=== PATIENT | male | born 1960 | race Two or more races ===

== ENCOUNTER 2025-01-19 10:35 | Day surgery (SDC) | payer MEDICAID, SELFPAY ==
--- NOTE | 2025-01-16 08:35 | EKG_ITS ---
[facility] Test Date: 2025-01-16 Pat Name: OCTAVIANO COLE Department: Room: - Gender: Male Squilgeer: ARIADNA : 1960 Requested By: Fab Urrutia Order Number: [id number] Reading MD: Fab Urrutia Measurements Intervals Brilliant Rate: 76 P: 54 WA: 225 QRS: 2 QRSD: 89 T: 73 QT: 357 QTc: 403 Interpretive Statements SINUS RHYTHM WITH FIRST DEGREE AV BLOCK No previous ECG available for comparison /[id number]/[email or web address]/[id number]
[2025-01-16 08:42] VITALS: BMI 41.8
[2025-01-16 11:21] VITALS: BMI 28.9
[2025-01-16 11:51] LABS: Collection Type, Urine Clean Catch; RBC,Urine 0 /hpf (0-3); Squamous Epithelial Cell,Urine 0 /hpf (0-5); WBC,Urine 0 /hpf (0-5)
[2025-01-16 12:39] LABS: Basophils # (Auto) 0.1 Thou/mm3 (0.0-0.2); Basophils % (Auto) 1 % (0-2.5); Eosinophils # (Auto) 0.1 Thou/mm3 (0.0-0.5); Eosinophils % (Auto) 2 % (0-10); Hematocrit 41.3 % (41.0-53.0); Hemoglobin 15.6 g/dL (13.5-16.0); Immature Granulocytes % (Auto) 0 % (0-0); Immature Granulocytes Auto 0.02 Thou/mm3 (0.00-0.00); Lymphocytes # (Auto) 2.3 Thou/mm3 (1.0-4.8); Lymphocytes % (Auto) 38 % (10-50); Mean Corpuscular HGB Conc 37.8 g/dl (31.0-37.0); Mean Corpuscular Hemoglobin 31.6 pg (25.0-35.0); Mean Corpuscular Volume 84 fL (80-100); Monocytes # (Auto) 0.5 Thou/mm3 (0.0-0.8); Monocytes % (Auto) 8 % (0-12); Neutrophils # (Auto) 3.2 Thou/mm3 (1.8-7.7); Neutrophils % (Auto) 51 % (37-80); Nucleated Red Blood Cell % 0 /100 WBC (0); Platelet Count 217 Thou/mm3 (140-440); RDW Standard Deviation 37.4 fL (35.1-43.9); Red Blood Count 4.93 Miln/mm3 (4.50-5.90); White Blood Count 6.2 Thou/mm3 (3.8-10.6)
[2025-01-16 12:48] LABS: Partial Thromboplastin Time 26.8 Seconds (22.0-36.0)
[2025-01-16 12:49] LABS: Alanine Aminotransferase 31 U/L (10-49); Albumin, Serum 4.6 gm/dL (3.4-4.8); Albumin/Globulin Ratio 1.6 (1.2-2.2); Alkaline Phosphatase 104 U/L (46-116); Anion Gap 9 (7-16); Aspartate Amino Transferase 25 U/L (0-34); BUN/Creatinine Ratio 14 Ratio (12-20); Bilirubin,Total 0.5 mg/dL (0.3-1.2); Blood Urea Nitrogen 17 mg/dL (9-23); Calcium 9.4 mg/dL (8.3-10.6); Calcium (Corrected) 9.4 mg/dL (8.5-10.1); Chloride 103 mMol/L (98-107); Creatinine (Component) 1.2 mg/dL (0.6-1.3); Estimated Creatinine Clearance 61.8 mL/min (>60); Globulin 2.8 gm/dL (2.3-3.5); Glucose 237 mg/dL (74-106); Osmolality,Calculated 288 (275-295); Potassium 4.8 mMol/L (3.4-5.1); Sodium 140 mMol/L (136-145); Total Protein 7.4 gm/dL (5.7-8.2); eGFR > 60 See Note
[2025-01-16 13:03] LABS: Bilirubin,Urine Negative (Negative); Blood,Urine Negative (Negative); Clarity,Urine Clear (Clear/Hazy); Color,Urine Lt-Yellow (Lt Yel-Yel); Glucose, Urine 4+ (Negative); Ketones,Urine Negative (Negative); Leukocyte Esterase,Urine Negative (Negative); Nitrite,Urine Negative (Negative); Protein,Urine Negative (Neg - Trace); Specific Gravity,Urine 1.014 (1.001-1.035); Urobilinogen,Urine Negative mg/dL (0.0-1.0)
[2025-01-19] VITALS (8 sets, daily range): BP systolic 113–131; BP diastolic 70–86; PULSE 55–74; RESP 13–18; TEMP 36.4–36.6; O2SAT 95–98; BMI 27.8
--- NOTE | 2025-01-19 10:52 | SUR.PREOP ---
Patient expressed gratitude for prayer before his procedure.
--- NOTE | 2025-01-19 15:55 | SUR.PHASEI ---
pt arrived to PACU via gurney with oral airway present, breathing unlabored, dressing to abdomen clean, dry, and intact, report from Lorin PINA and Dr Monteiro
--- NOTE | 2025-01-19 16:00 | ESOP_ITS ---
Date of Procedure 01/19/25 Pre Op Diagnosis Incarcerated umbilical hernia Post Op Diagnosis Same. Procedure Repair of incarcerated umbilical hernia size 3.5 cm on 01/19/2025 Findings This patient had an incarcerated umbilical hernia that measured about 3.5 cm in the defect. This was repaired. Portion of the omentum was incarcerated that was pushed back. Procedure Description Patient was examined in the preop area. Site and site were marked. Procedure was discussed with the patient in detail. The risk benefits alternatives were discussed with the patient and informed consent was obtained. The risks include bleeding infection recurrence of the hernia and anesthesia related risks. The patient was brought to the operating room and placed on the operating table in supine position. General anesthesia was administered in a satisfactory manner. IV antibiotics were given to the patient. Local anesthesia 0.25% Marcaine was used as an adjunct. Curvilinear vertical circumumbilical incision is made. This was deepened through the layers of skin subcutaneous tissue. The hernia sac was identified and was dissected around the umbilicus. Hernia sac was incised circumferentially, and the contents of the hernia sac were identified. There was omentum in the hernia sac, and this was adherent with the hernia sac and it is scarred down. The omentum was reduced. Hernia sac was excised as specimen. The fascia is cleaned and then the defect is defined. I examined the fascia from the peritoneal side and there are no adhesions of the bowel or omentum. The defect measured 3.5 cm. It came together nicely so I decided to repair that with interrupted 0 Ethibond icytuk-cf-opegd stitches. This repair closed the defect horizontally. Multiple besmft-np-yiklv stitches are taken to complete the repair. Hemostasis was achieved and the defect was checked again and there is no fascial defect anymore. The operative field is thoroughly irrigated with saline solution. The hernia sac toward the umbilical skin is trimmed. Umbilical skin is attached to the fascia with interrupted 3-0 Vicryl stitches so as to avoid floating umbilicus. After that subcutaneous tissue was approximated by 3-0 Vicryl and skin by four 4-0 Monocryl subcuticular stitches. Steri-Strips are applied. Sterile dressing is applied. Patient tolerated the procedure very well. Complications none. Anesthesia GETA Drains None. Implants None. Pathology / specimen Other (Hernia sac) Estimated Blood Loss 5 Condition Stable Disposition PACU Surgeon Fab Urrutia MD Surgical Staff Operation Date: 01/19/25 13:15 Case Staff Anesthesiologist: Filiberto Monteiro RNcasing finisher and stuffer: Rosibel Mcmullen RN medical laboratory manager Sharan Medina surgical first assistant
[2025-01-19] MEDS: fentaNYL CIT INJ 50 mCg/ML AMP 2ML IVP (16:22)
--- NOTE | 2025-01-19 16:25 | SUR.PHASEI ---
pt able to tolerate oral fluids without difficulty swallowing or n/v
--- NOTE | 2025-01-19 16:55 | SUR.PHASEII ---
pt awake, alert, able to follow commands, breathing unalbored, dressing to abdomen clean, dry, and intact, VS stable
--- NOTE | 2025-01-19 17:15 | SUR.PHASEII ---
discharge instructions given with daughter Bonita present using telephone interpreter deaf Marina ID#[id number], pt and daughter verbalize understanding of discharge instructions-all questions answered, pt able to dress self and ambulate with steady gait to wheelchair, pt discharged via wheelchair with all belongings and copies of discharge paperwork.
== END 2025-01-19 17:15 | disposition home or self-care (01) ==
PROVIDERS: PCP Internal Medicine; Referring Provider Specialist; Visit Provider Specialist
PROC: (CPT 49594; principal; 2025-01-19 13:00)
DX: K42.0 Umbilical hernia with obstruction, without gangrene (principal); Z01.810 Encounter for preprocedural cardiovascular examination
CPT/HCPCS: 49594; 36415; 80053; 81001; 85025; 85730; 93005; A4217; A4649; J0690; J1100; J1580; J2704; J2710; J2765; J3010; J3490; J7030; J1596